=== PATIENT | female | born 1985 | race Caucasian/White ===

== ENCOUNTER → 2021-02-05 | Outpatient (CLI) | payer OTHER ==
--- NOTE | ~2021-02-05 | EEG ---
[facility] [place] [address] ELECTROENCEPHALOGRAM Name: HORACIO KENNEDY Room #: [facility].#: [id number] Admission: 02/05/21 Attend Phys: Red Merrill MD Discharge: Date of : 87 Report #: [id number] THIS REPORT FOR: //name// DOC #: [id number] Red Merrill MD DATE OF SERVICE: 02/05/2021 This patient is being evaluated for the possibility of seizure. EEG was done by placing the electrode by standard 10-20 system of electrode placement. Both referential and sequential montages were used for recording. Background activity in this patient's EEG is about 10 Hz and 30 microvolt. It is a symmetrical activity. Photic stimulation is unremarkable. The patient goes to sleep, that is associated with bilateral slowing and hypnagogic synchrony on both sides. No clear-cut spike and slow wave activity was noticed. IMPRESSION: This patient's EEG does not demonstrate any clear-cut epileptiform activity. Thank you very much for this referral. Red Merrill MD PK/PUN By: [id number] Red Merrill MD /nt
== END ==
LOC: NEURO 09:43
PROVIDERS: ATTEND Psychiatry & Neurology Neuromuscular Medicine
DX: R56.9 Unspecified convulsions (principal); Z88.2 Allergy status to sulfonamides; Z87.898 Personal history of other specified conditions